=== PATIENT | male | born 1995 | race Hispanic/Latino ===

== ENCOUNTER 2017-03-03 13:48 | Emergency (ER) | payer OTHER ==
[2017-03-03] MEDS ORDERED: Adacel (T-DAP) 0.5 ML VIAL ONE (14:21)
[2017-03-03] MEDS ORDERED: Ketorolac Tromethamine 30 MG/ML VIAL ONE (14:21)
--- NOTE | 2017-03-03 15:05 | RAD ---
LEFT KNEE: HISTORY: Left knee pain. FINDINGS/IMPRESSION: No fracture, dislocation, or bony destruction is identified. There is fullness in the suprapatellar pouch which may be due to a joint effusion. POS: [facility]
== END 2017-03-03 15:00 | disposition home or self-care (01) ==
LOC: ERS 13:48
DX: S80.212A Abrasion, left knee, initial encounter (principal); V29.9XXA Motorcycle rider (driver) (passenger) injured in unspecified traffic accident, initial encounter
CPT/HCPCS: 90471; 90715; 96372; J1885

== ENCOUNTER 2017-05-25 20:38 | Emergency (ER) | payer OTHER | END 2017-05-25 23:06 | disposition left against medical advice (07) | LOC: ERS 20:38 | DX: Z53.21 Procedure and treatment not carried out due to patient leaving prior to being seen by health care provider (principal) ==

== ENCOUNTER 2017-05-27 09:35 | Emergency (ER) | payer OTHER ==
[2017-05-27] MEDS ORDERED: Lidocaine 1% w/Epinephrine 1:200K 30 ML VIAL ONE (12:24)
== END 2017-05-27 14:04 | disposition home or self-care (01) ==
LOC: ERS 09:35
DX: L02.01 Cutaneous abscess of face (principal); K21.9 Gastro-esophageal reflux disease without esophagitis
CPT/HCPCS: 10061; 87070; 87205

== ENCOUNTER 2017-06-03 14:41 | Emergency (ER) | payer OTHER ==
[2017-06-03] MEDS ORDERED: Lidocaine 1% PF 5 ML VIAL ONE (18:17)
[2017-06-03] MEDS ORDERED: Bacitracin Zinc 1 Packet ONE (18:56)
== END 2017-06-03 19:04 | disposition home or self-care (01) ==
LOC: ERS 14:41
DX: L02.01 Cutaneous abscess of face (principal); K21.9 Gastro-esophageal reflux disease without esophagitis
CPT/HCPCS: J2001

== ENCOUNTER 2018-02-19 11:15 | Emergency (ER) | payer BC, OTHER ==
[2018-02-19 11:50] LABS: Bilirubin Negative (Negative); Blood, Urine Negative (Negative); Clarity CLEAR (Clear); Glucose, Urine (Dipstick) Negative (Negative); Leukocyte Negative (Negative); Nitrite Negative (Negative); Protein, Urine (Dipstick) Negative (Neg-Trace); Specific Gravity, Urine 1.017 (1.002-1.036)
--- NOTE | 2018-02-19 14:17 | ULT ---
ULTRASOUND TESTICULAR: HISTORY: Groin pain. COMPARISON: None. FINDINGS: The right testicle measures 2.4 x 2.4 x 2.3 cm and the left testicle measures 2.6 x 4.1 x 1.9 cm. Donn th epididymi are normal. Adequate vascular flow. No testicular mass. IMPRESSION: Normal exam. POS: [facility]
[2018-02-19] MEDS ORDERED: Insulin Regular 300 UNITS/3 ML VIAL ONE (14:39)
[2018-02-25 21:04] LABS: Chlamydia by PCR Not Detected (NotDetected); GC by PCR Not Detected (NotDetected)
== END 2018-02-19 14:10 | disposition home or self-care (01) ==
LOC: ERS 11:15
DX: S39.011A Strain of muscle, fascia and tendon of abdomen, initial encounter (principal); K21.9 Gastro-esophageal reflux disease without esophagitis; X50.0XXA Overexertion from strenuous movement or load, initial encounter
CPT/HCPCS: 76870; 81003; 87491; 87591; 93976; J1815

== ENCOUNTER 2018-11-25 10:15 | Emergency (ER) | payer BC ==
[2018-11-25 11:34] LABS: Bilirubin Negative (Negative); Blood, Urine Negative (Negative); Clarity TURBID (Clear); Glucose, Urine (Dipstick) Negative (Negative); Leukocyte Negative (Negative); Nitrite Negative (Negative); Protein, Urine (Dipstick) Negative (Neg-Trace); Urobilinogen 0.2 mg/dL (0.2-1.0)
--- NOTE | 2018-11-25 11:55 | ULT ---
EXAM: US Testicular W Doppler PROVIDED CLINICAL HISTORY: Testicular pain. COMPARISON: 02/19/2018 FINDINGS: The testicles demonstrate a normal sonographic appearance bilaterally without evidence of a testicula r mass. The right testicle measures 3 cm x 3.2 cm x 2 cm with the left testicle measuring 2.6 cm x 3.4 cm x 1.7 cm. Doppler evaluation of each testicle with spectral analysis and color flow evaluation demonstrates art erial flow in each testicle. There is a small 0.3 cm anechoic structure seen in the right epididymal head likely due to a tiny epi didymal cyst. The left epididymis demonstrates a normal sonographic appearance. There is no evidence of a hydrocele. There has been no significant interval change from prior exam. IMPRESSION: 1. Normal appearing bilateral testicles with arterial flow documented in each testicle. 2. Tiny right epididymal cyst.
== END 2018-11-25 12:30 | disposition home or self-care (01) ==
LOC: ERS 10:15
DX: N50.812 Left testicular pain (principal); K21.9 Gastro-esophageal reflux disease without esophagitis
CPT/HCPCS: 76870; 81003; 93976

== ENCOUNTER 2018-12-31 16:55 | Emergency (ER) | payer BC ==
[2018-12-31] MEDS ORDERED: Lidocaine 1% w/Epinephrine 1:100K 20 ML VIAL ONE (17:03)
[2018-12-31] MEDS ORDERED: Bacitracin Zinc Ointment 30 gm TUBE ONE (17:19)
[2018-12-31] MEDS ORDERED: Bacitracin 1 PK ONE (17:21)
--- NOTE | 2018-12-31 18:04 | RAD ---
RIGHT HAND THREE VIEWS: HISTORY: Right hand injury. Laceration to wrist. COMPARISON: None. FINDINGS: There is no evidence of a fracture, dislocation, or other osseous abnormality. No radiopaque foreign body is seen. IMPRESSION: No acute osseous abnormality. POS: [facility]
--- NOTE | 2018-12-31 18:05 | RAD ---
RIGHT WRIST THREE VIEWS: HISTORY: Laceration to right wrist after injury. FINDINGS: There is no evidence of a fracture, dislocation, or other osseous abnormality. No radiopaque foreign body is seen. IMPRESSION: 1. No acute osseous abnormality. 2. No radiopaque foreign body visualized. POS: [facility]
== END 2018-12-31 18:05 | disposition home or self-care (01) ==
LOC: SCSER 16:55
DX: S61.511A Laceration without foreign body of right wrist, initial encounter (principal); K21.9 Gastro-esophageal reflux disease without esophagitis; W25.XXXA Contact with sharp glass, initial encounter
CPT/HCPCS: 12001; J2001

== ENCOUNTER 2019-06-30 11:09 | Emergency (ER) | payer BC ==
[2019-06-30] MEDS ORDERED: Ketorolac Tromethamine 30 MG/ML VIAL ONE (12:52)
== END 2019-06-30 13:00 | disposition home or self-care (01) ==
LOC: ERS 11:09
DX: S39.012A Strain of muscle, fascia and tendon of lower back, initial encounter (principal); K21.9 Gastro-esophageal reflux disease without esophagitis; X50.1XXA Overexertion from prolonged static or awkward postures, initial encounter
CPT/HCPCS: 96372; 99283; J1885

== ENCOUNTER 2019-08-19 11:41 | Emergency (ER) | payer BC ==
--- NOTE | 2019-08-19 13:42 | RAD ---
Left RIBS 3 views HISTORY: Fall. Injury. FINDINGS: No displaced rib fracture or pneumothorax are apparent. There is slight S shaped curvature of the thoracic spine.
== END 2019-08-19 14:15 | disposition home or self-care (01) ==
LOC: ERS 11:41
DX: R07.81 Pleurodynia (principal); K21.9 Gastro-esophageal reflux disease without esophagitis; Y99.0 Civilian activity done for income or pay; Y08.89XA Assault by other specified means, initial encounter

== ENCOUNTER 2019-12-22 12:24 | Emergency (ER) | payer BC, OTHER ==
[2019-12-23 15:23] LABS: SARS-CoV-2 MS2 Positive; SARS-CoV-2 N Gene Negative; SARS-CoV-2 S Gene Negative; SARS-CoV-2 orf1ab Negative
== END 2019-12-22 12:57 | disposition home or self-care (01) ==
LOC: ERS 12:24
DX: Z20.828 Contact with and (suspected) exposure to other viral communicable diseases (principal); K21.9 Gastro-esophageal reflux disease without esophagitis
CPT/HCPCS: 87635; 99283; U0003

== ENCOUNTER 2020-06-01 18:22 | Emergency (ER) | payer SELFPAY ==
[2020-06-01] MEDS ORDERED: Lidocaine 1% (PF) 30 ML VIAL ONE (20:52)
== END 2020-06-01 22:55 | disposition home or self-care (01) ==
LOC: ERS 18:22
DX: L02.01 Cutaneous abscess of face (principal); K21.9 Gastro-esophageal reflux disease without esophagitis
CPT/HCPCS: 10060; J2001

== ENCOUNTER 2020-08-12 07:33 | Emergency (ER) | payer SELFPAY | END 2020-08-12 09:42 | disposition home or self-care (01) | LOC: ERS 07:33 | DX: L02.01 Cutaneous abscess of face (principal) | CPT/HCPCS: 99283 ==

== ENCOUNTER 2020-08-15 07:53 | Emergency (ER) | payer SELFPAY ==
[2020-08-15] MEDS ORDERED: Lidocaine 1% w/Epinephrine 1:100K 20 ML VIAL ONE (08:09)
== END 2020-08-15 08:48 | disposition home or self-care (01) ==
LOC: ERS 07:53
DX: L02.01 Cutaneous abscess of face (principal)
CPT/HCPCS: 10060

== ENCOUNTER 2022-03-23 09:37 | Emergency (ER) | payer SELFPAY | END 2022-03-23 10:40 | disposition home or self-care (01) | LOC: ERS 09:37 | DX: G50.0 Trigeminal neuralgia (principal) | CPT/HCPCS: 99282 ==

== ENCOUNTER 2022-07-24 03:51 | Emergency (ER) | payer SELFPAY ==
[2022-07-24] MEDS ORDERED: Ketorolac Tromethamine 30 MG/ML VIAL ONE (07:38)
== END 2022-07-24 07:47 | disposition home or self-care (01) ==
LOC: ERS 03:51
DX: K02.9 Dental caries, unspecified (principal)
CPT/HCPCS: 96372; 99282; J1885

== ENCOUNTER 2024-07-26 09:28 | Emergency (ER) | payer SELFPAY ==
[2024-07-26] MEDS ORDERED: Ketorolac Tromethamine 30 MG (1 mL) VIAL ONE (11:10)
[2024-07-26] MEDS ORDERED: HYDROcodone/Acetaminophen 5/325 mg Tablet ONE (11:11)
== END 2024-07-26 11:21 | disposition home or self-care (01) ==
LOC: ERS 09:28
DX: B02.9 Zoster without complications (principal); Z55.6 Problems related to health literacy; Z75.3 Unavailability and inaccessibility of health-care facilities
CPT/HCPCS: 96372; 99283; J1885

== ENCOUNTER 2025-05-21 07:29 | Emergency (ER) | payer SELFPAY ==
[2025-05-21] MEDS ORDERED: Ketorolac Tromethamine 30 MG (1 mL) VIAL ONE (07:47)
[2025-05-21] MEDS ORDERED: Dexamethasone 10 MG/ML VIAL ONE (07:47)
== END 2025-05-21 08:10 | disposition home or self-care (01) ==
LOC: ERS 07:29
DX: S39.012A Strain of muscle, fascia and tendon of lower back, initial encounter (principal); X50.0XXA Overexertion from strenuous movement or load, initial encounter
CPT/HCPCS: 72100; 96372; 99283; J1100; J1885